=== PATIENT | male | born 1935 | race Caucasian/White ===

== ENCOUNTER 2019-05-29 10:38 | Emergency (ER) | payer OTHER ==
[2019-05-29 11:28] VITALS: BP 111/65
--- NOTE | 2019-05-29 11:48 | UC ---
Ear Complaint HPI - History of Current Complaint Chief Complaint: UCEar Stated Complaint: RIGHT EAR COMPLAINT Time Seen by Provider: 05/29/19 11:44 Pain Intensity: 8 - Allergies/Home Medications Allergies/Adverse Reactions: Allergies Allergy/AdvReac Type Severity Reaction Status Date / Time No Known Allergies Allergy Verified 05/29/19 11:28 Home Medications: Home Medications Amiodarone HCl 200 mg PO DAILY 05/29/19 [History Confirmed 05/29/19] Apixaban [Eliquis] 5 mg PO BID 05/29/19 [History Confirmed 05/29/19] Carvedilol 3.125 mg PO BID 05/29/19 [History Confirmed 05/29/19] Cholecalciferol (Vitamin D3) [Vitamin D3] 1,000 unit PO DAILY 05/29/19 [History Confirmed 05/29/19] Ciproflox/Dexameth OTIC.SUSP* [Ciprodex Otic*] 4 drop .SEE ORDER BID 05/29/19 [ History Confirmed 05/29/19] Ferrous Gluconate TAB* [Fergon TAB*] 325 mg PO DAILY 05/29/19 [History Confirmed 05/29/19] Isosorbide Dinitrate 30 mg PO BID 05/29/19 [History Confirmed 05/29/19] Nitroglycerin 0.4 mg SL ONCE PRN 05/29/19 [History Confirmed 05/29/19] Omeprazole CAP (NF) [Prilosec CAP* 20 MG] 20 mg PO DAILY 05/29/19 [History Confirmed 05/29/19] Simvastatin TAB(NF) [Zocor(NF)] 10 mg PO 1700 05/29/19 [History Confirmed ] PMH/Surg Hx/FS Hx/Imm Hx - Surgical History Surgical History: Yes Surgery Procedure, Year, and Place: angioplasty, defibulator - Social History Alcohol Use: None Substance Use Type: None Smoking Status (MU): Former Smoker Physical Exam Vital Signs: Initial Vital Signs Temp 97.9 F 05/29/19 11:14 Pulse 62 05/29/19 11:14 Resp 16 05/29/19 11:14 BP 111/65 05/29/19 11:14 Pulse Ox 97 05/29/19 11:14 Discharge - Discharge Plan Referrals: No Primary Care Phys,NOPCP [Primary Care Provider] -
--- NOTE | 2019-05-29 11:54 | UC ---
General HPI - HPI Summary HPI Summary: pt presents complaining of ongoing pain in his R ear. [place] on 05/07/19 he went to a local ER in [place] for R ear pain and was tx with Cortisporin solution. on about 05/10/19, he had ongoing pain and went to the [facility]. they tx him with Ciprodex ear drops and an oral steroid. on 05/15/19, he went to the [facility] in [place] and was tx with Doxycycline 100mg BID and Cortisporin susp. on 05/17/19, he was admitted to [facility] in [place] after he fainted. he had labs, cardiac workup and CT angio brain with and without contrast. he was discharged on Ciprodex and Carbatrol. Some of his discharge paper at bedside did reference Trigeminal neuralgia. on 05/26/19, he followed up with an ENT in [facility] who removed a prior ear wick and had him complete the Cipro ear drops which are done today. pt reason for this visit is a worsening in the R ear pain and he has finished the tx. he states "it seems like it gets better then flares up again" He denies hx DM, fever, headache, uri s/s's and hx swimming. He denies CP, SOB and balance issues. He denies any current discharge from that ear but has had some on prior occasions. A BS during that hospitalization was 107(on his paper work from that visit) - History of Current Complaint Chief Complaint: UCEar Stated Complaint: RIGHT EAR COMPLAINT Time Seen by Provider: 05/29/19 11:44 Hx Obtained From: Patient, Family/Door And Arrival Attendant Onset/Duration: Gradual Onset Pain Intensity: 8 Associated Signs & Symptoms: Negative: Edema, Fever, Headache - Allergy/Home Medications Allergies/Adverse Reactions: Allergies Allergy/AdvReac Type Severity Reaction Status Date / Time No Known Allergies Allergy Verified 05/29/19 11:28 Home Medications: Home Medications Amiodarone HCl 200 mg PO DAILY 05/29/19 [History Confirmed 05/29/19] Apixaban [Eliquis] 5 mg PO BID 05/29/19 [History Confirmed 05/29/19] Carvedilol 3.125 mg PO BID 05/29/19 [History Confirmed 05/29/19] Cholecalciferol (Vitamin D3) [Vitamin D3] 1,000 unit PO DAILY 05/29/19 [History Confirmed 05/29/19] Ciproflox/Dexameth OTIC.SUSP* [Ciprodex Otic*] 4 drop .SEE ORDER BID 05/29/19 [ History Confirmed 05/29/19] Ferrous Gluconate TAB* [Fergon TAB*] 325 mg PO DAILY 05/29/19 [History Confirmed 05/29/19] Isosorbide Dinitrate 30 mg PO BID 05/29/19 [History Confirmed 05/29/19] Nitroglycerin 0.4 mg SL ONCE PRN 05/29/19 [History Confirmed 05/29/19] Omeprazole CAP (NF) [Prilosec CAP* 20 MG] 20 mg PO DAILY 05/29/19 [History Confirmed 05/29/19] Simvastatin TAB(NF) [Zocor(NF)] 10 mg PO 1700 05/29/19 [History Confirmed ] PMH/Surg Hx/FS Hx/Imm Hx - Additional Past Medical History Additional PMH: aortic stenosis, anemia(Fe+ deficiency) Endocrine History: Dyslipidemia Cardiovascular History: Cardiac Disease, Hypertension GI/ History: Gastroesophageal Reflux - Surgical History Surgical History: Yes Surgery Procedure, Year, and Place: angioplasty, defibulator - Family History Known Family History: Positive: Non-Contributory - Social History Lives: With Family Alcohol Use: None Substance Use Type: None Smoking Status (MU): Former Smoker Review of Systems All Other Systems Reviewed And Are Negative: Yes Constitutional: Negative: Fever, Chills Skin: Negative: Rash Eyes: Negative: Drainage ENT: Positive: Ear Ache - R. Negative: Sore Throat, Nasal Discharge, Sinus Congestion Respiratory: Negative: Shortness Of Breath, Cough Cardiovascular: Negative: Palpitations, Chest Pain Neurological: Negative: Headache, Weakness Physical Exam Triage Information Reviewed: Yes Appearance: Well-Appearing Vital Signs: Initial Vital Signs Temp 97.9 F 05/29/19 11:14 Pulse 62 05/29/19 11:14 Resp 16 05/29/19 11:14 BP 111/65 05/29/19 11:14 Pulse Ox 97 05/29/19 11:14 Vital Signs Reviewed: Yes Eyes: Positive: Conjunctiva Clear ENT: Positive: Pharynx normal, TMs normal - L/R. L canal is clear. R canal has mild erythema and slight swelling. No auricular adenopathy or mastoid tenderness. Pressure on R tragus caused discomfort.. Negative: Nasal congestion , Nasal drainage, Sinus tenderness Neck: Positive: Supple, Nontender, No Lymphadenopathy, Other: - no bruits Respiratory: Positive: Lungs clear, Normal breath sounds, No respiratory distress Cardiovascular: Positive: RRR, No Murmur, Pulses Normal Abdomen Description: Positive: Nontender Musculoskeletal: Positive: ROM Intact Neurological: Positive: Other: - A&Ox3. CN 2-12 grossly intact. steady gait. Psychological: Positive: Normal Response To Family, Age Appropriate Behavior Skin Exam: Normal Skin: Negative: Rashes Course/Dx - Course Course Of Treatment: Pt staying local with family so I called Dr Hook. He is not distance education coordinator for me but after I describe pt's hx and PE, he suggest I tx with cipro 250mg BID x 5 days and Tobradex 5 drops R ear BID x 5 days. He will see pt this coming Saturday. Pt will be here until 06/08/19. Pt advised of potential drug interaction between the cipro and his medication( prolong QT). I explained that the ongoing ear infection outweighs this risk do to the multiple tx failures. plus I am using a low dose of the Cipro and a short duration. Failure to properly tx his OE at this time puts him at risk for complications such as mastoiditis. pt willing to take the risk. - Differential Dx - Multi-Symptom Differential Diagnoses: Other - neuro exam is reasuring. pt had CT brain on admission and his BS during that visit was unremarkable(no hyperglycemia). his hospitalization references trigeminal neuralgia; however, pt clearly has a non resolving R otitis externa despite multiple antibiotics and some po steroids. thus ENT consulted and they will recheck acutely. - Diagnoses Provider Diagnosis: Otalgia of right ear, Otitis externa Discharge - Sign-Out/Discharge Documenting (check all that apply): Patient Departure All imaging exams completed and their final reports reviewed: No Studies - Discharge Plan Condition: Stable Disposition: HOME Prescriptions: Ciprofloxacin TAB* [Cipro 250 MG Tab*] 250 mg PO BID 5 Days #10 tab Tobramycin/Dexamethasone [Tobradex Eye Drops] 5 ml OTIC BID #1 drops.susp Patient Education Materials: Otitis Externa (ED), Earache (ED) Referrals: Louie Hook MD [Medical Doctor] - Additional Instructions: FOLLOW UP DR HOOK SATURDAY AT 8:30AM (06/01/19). GO TO THE ER FOR ANY WORSENING. STOP THE CIPRODEX EAR DROPS. - Billing Disposition and Condition Condition: STABLE Disposition: Home
== END 2019-05-29 13:24 | disposition home or self-care (01) ==
LOC: UCCORT 10:38
DX: H60.91 Unspecified otitis externa, right ear (principal); E78.5 Hyperlipidemia, unspecified; I11.9 Hypertensive heart disease without heart failure; K21.9 Gastro-esophageal reflux disease without esophagitis
CPT/HCPCS: 99202; G0463